=== PATIENT | male | born 1955 | race Caucasian/White ===

== ENCOUNTER 2022-07-16 09:05 | Outpatient (REF) | payer MEDICARE, MEDICAID, SELFPAY ==
--- NOTE | 2022-07-16 09:26 | CA_ITS ---
Transthoracic Echocardiogram Patient (Last, First, Middle): Jesse Pacheco, Gender: Male Date of : 1955 Age: 67 Procedure Date: 07/16/2022 Procedure Type: Transthoracic Echocardiogram Location: OP Height: 167.64 cm Weight: 92.99 kg BSA: 2.02 m2 Heart Rate: 69 bpm BP: 140 / 80 mmHg Subgrade Tester: JW Referring MD: Clemente Bustamante MD Weight Calculator: Viet Jimenes MD Symptoms: R01.1 CA MURMUR Study Quality: Fair ECG Rhythm: Sinus Conclusions: - 1. Normal LV systolic function with LVEF of 55-60% with mild LVH with impaired relaxation filling pattern 2. Normal cardiac valvular Doppler 3. Mildly dilated ascending aorta at 3.8 cm 4. No pericardial effusion Findings Left Ventricle The left ventricle was not well visualized. There is mildly increased left ventricular wall thickness. The visually estimated ejection fraction is between 55-60%. Spectral Doppler is indicative of an impaired relaxation filling pattern. E/E prime ratio is between 8 and 15 consistent with indeterminate filling pressures. Right Ventricle Normal right ventricular cavity size and systolic function. Atria The left atrium is likely dilated. There is no evidence of interatrial shunt. The right atrium is normal in size. Aortic Valve There is mild calcification of the aortic valve. There is no aortic valve stenosis. There is no aortic valve regurgitation. Mitral Valve There is mild anterior and posterior mitral leaflet thickening. There is trace mitral valve regurgitation. There is no mitral valve stenosis. Pulmonic Valve The pulmonic valve was not well visualized. Tricuspid Valve Likely normal tricuspid valve structure and function. Tricuspid regurgitation envelope is inadequate for calculation of right ventricular systolic pressure. Normal right atrial pressure. Great Vessels The pulmonary artery was not well visualized. There is mild dilatation of the ascending aorta measuring 3.80 cm. Venous The inferior vena cava is normal in size and collapses greater than 50% with inspiration. Pericardium/Pleural There is no evidence of pericardial effusion. Prior Study Comparison No prior study available for comparison. Measurements 2D Linear Measurements IVSd: 1.38 0.6-0.9/0.6-1.0 cm LVIDd: 4.01 3.9-5.3/4.2-5.9 cm LVIDd Index: 1.99 2.4-3.2/2.2-3.1 cm/m2 LVIDs: 2.57 2.0-3.6 cm LVPWd: 1.34 0.7-1.1 cm LA Diam: 4.10 2.7-3.8/3.0-4.0 cm LAIDs Index: 2.03 1.5-2.3 cm/m2 LV Mass: 249.95 67-162/88-224 g LV Mass Index: 123.74 43-95/49-115 g/m2 LVOT Diam: 1.90 3.0+(-)1.3 cm 2D Systolic Function EF 4C: 51.90 >55% EF 2C: 64.30 >55% EF BiP: 58.40 >55% Mitral Valve MV Pk E: 0.83 MV PK A: 1.03 MV Decel Time: 221.00 E/A: 0.80 E'Lateral: 7.94 E'Medial: 6.09 E/E' Med: 13.50 E/E' Lat: 10.40 PHT: 65.00 MVA PHT: 3.38 Decel Mcduffie: 3.74 Aortic Valve AoV Pk Harrison: 1.80 AoV Mn Harrison: 1.18 AoV VTI: 0.35 AoV Pk Grad: 13.00 Aov Mn Grad: 6.00 SHANDA Cont.VTI: 2.82 LVOT LVOT Pk Harrison: 1.83 LVOT Mn Harrison: 1.21 LVOT VTI: 0.35 LVOT Pk Grad: 13.00 LVOT Mn Grad: 7.00 LVOT Diam: 1.90 LVOT Area: 2.84 Diastolic Function MV Pk E: 0.83 MV Pk A: 1.03 E/A: 0.80 E'Medial: 6.09 E/E' Med: 13.50 E' Laterial: 7.94 E/E' Lat: 10.40 Right Ventricle TAPSE (mm): 21.70 TVS' Harrison: 12.30 Tricuspid Valve RA Press: 3.00 Great Vessels Aorta Sinus of Valsalva: 3.70 2.0-3.5 cm Ao Asc: 3.80 2.1-3.4 cm Pulmonary Valve PV Pk Harrison: 1.11 Peak PV Grad: 5.00 Updated in Other Vendor System with Status of Final Viet Jimenes MD electronically signed on 07/16/2022 4:44:53 PM with status of Final
== END 2022-07-16 09:06 | disposition home or self-care (01) ==
LOC: HO.LAB 09:05
PROVIDERS: Visit Provider Internal Medicine Geriatric Medicine
DX: R01.1 Cardiac murmur, unspecified (principal)
CPT/HCPCS: 93306

== ENCOUNTER 2023-03-30 10:24 | Outpatient (REF) | payer MEDICARE, MEDICAID, SELFPAY ==
[2023-03-30 13:01] LABS: Anion Gap 19 (12-20); Blood Urea Nitrogen 31 mg/dL (9-16); Calcium 9.3 mg/dL (8.4-10.2); Carbon Dioxide 21 mmol/L (22-29); Chloride 100 mmol/L (96-108); Estimated Glomerular Filt Rate 39; Glucose Random 126 mg/dL (60-115); Potassium 4.4 mmol/L (3.3-5.1); Sodium 136 mmol/L (135-145)
== END 2023-03-30 10:25 | disposition home or self-care (01) ==
LOC: HO.HHCL 10:24
PROVIDERS: Visit Provider Nurse Practitioner Family
DX: N23 Unspecified renal colic (principal)
CPT/HCPCS: 36415; 80048; 87086; 87088; 87186

== ENCOUNTER 2023-04-21 15:33 | Outpatient (REF) | payer MEDICARE, MEDICAID, SELFPAY ==
--- NOTE | ~2023-04-21 | CT_ITS ---
EXAMINATION: CT ABDOMEN AND PELVIS WITHOUT CONTRAST CLINICAL INFORMATION: Kidney stones. COMPARISON: None available. TECHNIQUE: Multidetector volumetric imaging was performed from the superior aspect of the liver through the pubic symphysis. Sagittal and coronal reformatted images were obtained on the technologist's workstation. This CT examination was performed using dose optimization techniques as appropriate, variously including the following: *Automated exposure control *Adjustment of mA and/or kV according to patient size (this includes techniques or standardized protocols for targeted exams where dose is matched to indication/reason for exam; i.e. extremities or head) *Use of iterative reconstruction technique DLP: 720 mGy-cm FINDINGS: LUNG BASES: The visualized lung bases are unremarkable. LIVER, GALLBLADDER, AND BILIARY TREE: Calcified granuloma in the right hepatic lobe. Subtle micronodular contour may represent cirrhosis. Clinical correlation necessary. Cholelithiasis without evidence of acute cholecystitis. No biliary ductal dilatation. PANCREAS: No discrete pancreatic mass. No ductal dilatation. SPLEEN: Calcified granulomas in normal size spleen. ADRENAL GLANDS: Unremarkable. KIDNEYS AND URETERS: Right renomegaly and perinephric stranding. Severe right hydronephrosis due to a 1.3 x 1.2 x 1.7 cm 1400 HU calculus in the mid ureter. No other renal or ureteral calculi are seen. BLADDER: No bladder calculus or discrete bladder mass. GASTROINTESTINAL TRACT: Small bowel is normal in caliber. The appendix is normal. The large bowel is normal in caliber. No acute inflammatory changes. ABDOMINAL WALL: No significant hernia is appreciated. LYMPH NODES: No adenopathy. VASCULAR: No aortic aneurysm. PELVIC VISCERA: Coarse calcifications in the prostate. OSSEOUS STRUCTURES: Degenerative changes in the spine. CT/CT abdomen pelvis wo IV con IMPRESSION: Obstructing 1.3 x 1.2 x 1.7 cm calculus mid right ureter causing severe upstream hydroureteronephrosis. Subtle micronodular contour of the liver suggesting cirrhosis. Fleischner guidelines were followed.
== END 2023-04-21 15:34 | disposition home or self-care (01) ==
LOC: HO.CT 15:33
PROVIDERS: PCP Internal Medicine Geriatric Medicine; Visit Provider Nurse Practitioner Family
DX: N23 Unspecified renal colic (principal)
CPT/HCPCS: 74176

== ENCOUNTER → 2023-09-28 08:42 | Outpatient (REF) | payer MEDICARE, MEDICAID, SELFPAY ==
--- NOTE | 2023-09-28 08:47 | CA_ITS ---
Transthoracic Echocardiogram Patient (Last, First, Middle): Jesse Pacheco, Gender: Male Date of : 1955 Age: 68 Procedure Date: 09/28/2023 Procedure Type: Transthoracic Echocardiogram Location: OP Height: 167.64 cm Weight: 85.73 kg BSA: 1.95 m2 Heart Rate: bpm BP: 110 / 72 mmHg Bore Miner Operator: TO Referring MD: Clemente Bustamante MD Symptoms: R01.1 CA MURMUR Study Quality: Adequate ECG Rhythm: Sinus Conclusions: - The left ventricular systolic function is normal. The calculated ejection fraction is 65% by biplane method. - Evidence suggests grade II (moderate) diastolic dysfunction. - The left atrium is moderately dilated. - No obvious valvular pathology seen on this study. - There is mild dilatation of the ascending aorta measuring 4.10 cm. Findings Left Ventricle Normal left ventricular cavity size. There is mildly increased left ventricular wall thickness. The left ventricular systolic function is normal. The calculated ejection fraction is 65% by biplane method. There is no evidence of regional wall motion abnormalities. Evidence suggests grade II (moderate) diastolic dysfunction. LV peak GLS -19.9%. Right Ventricle Normal right ventricular cavity size and systolic function. Atria The left atrium is moderately dilated. The right atrium is normal in size. Aortic Valve There is a normal trileaflet aortic valve. There is no aortic valve stenosis. There is no aortic valve regurgitation. Mitral Valve There is mild mitral annular calcification. There is trace mitral valve regurgitation. There is no mitral valve stenosis. Pulmonic Valve The pulmonic valve is likely normal. Tricuspid Valve There is no tricuspid valve regurgitation. Tricuspid regurgitation envelope is inadequate for calculation of right ventricular systolic pressure. Great Vessels There is mild dilatation of the ascending aorta measuring 4.10 cm. Venous The inferior vena cava is mildly dilated and collapses greater than 50% with inspiration. Pericardium/Pleural There is no evidence of pericardial effusion. Prior Study Comparison Changes noted compared to prior study dated: 07/16/2022. slight increase in ascending aortic size. Recommendations, Care & Conclusions No obvious valvular pathology seen on this study. Measurements 2D Linear Measurements IVSd: 1.47 0.6-0.9/0.6-1.0 cm LVIDd: 4.51 3.9-5.3/4.2-5.9 cm LVIDd Index: 2.31 2.4-3.2/2.2-3.1 cm/m2 LVIDs: 2.85 2.0-3.6 cm LVPWd: 1.25 0.7-1.1 cm LA Diam: 4.10 2.7-3.8/3.0-4.0 cm LAIDs Index: 2.10 1.5-2.3 cm/m2 LV Mass: 297.65 67-162/88-224 g LV Mass Index: 152.64 43-95/49-115 g/m2 LVOT Diam: 2.40 3.0+(-)1.3 cm 2D Systolic Function EF 4C: 65.80 >55% EF 2C: 64.20 >55% EF BiP: 65.00 >55% Mitral Valve MV VTI: 0.43 MV Pk Harrison: 1.03 MV Mn Harrison: 0.64 MV Pk Grad: 4.00 MV Mn Grad: 2.00 MV Pk E: 0.88 MV PK A: 0.78 MV Decel Time: 278.00 E/A: 1.10 E'Lateral: 6.20 E'Medial: 4.79 E/E' Med: 18.40 E/E' Lat: 14.20 PHT: 82.00 MVA PHT: 2.68 MVA Continuity: 3.65 Decel [place]: 3.17 Aortic Valve AoV Pk Harrison: 1.66 AoV Mn Harrison: 1.13 AoV VTI: 0.37 AoV Pk Grad: 11.00 Aov Mn Grad: 6.00 SHANDA Cont.VTI: 4.18 LVOT LVOT Pk Harrison: 1.63 LVOT Mn Harrison: 0.98 LVOT VTI: 0.35 LVOT Pk Grad: 11.00 LVOT Mn Grad: 4.00 LVOT Diam: 2.40 LVOT Area: 4.52 Diastolic Function MV Pk E: 0.88 MV Pk A: 0.78 E/A: 1.10 E'Medial: 4.79 E/E' Med: 18.40 E' Laterial: 6.20 E/E' Lat: 14.20 Right Ventricle TAPSE (mm): 24.40 TVS' Harrison: 12.50 Tricuspid Valve RA Press: 8.00 Great Vessels Aorta Sinus of Valsalva: 3.77 2.0-3.[address] [place]: 3.26 1.7-3.4 cm Ao Asc: 4.10 2.1-3.4 cm Ao Arch: 3.70 Updated in Other Vendor System with Status of Final Aj Thornton MD electronically signed on 09/28/2023 12:34:45 PM with status of Final
== END ==
LOC: HO.CARD 08:42
PROVIDERS: PCP Internal Medicine Geriatric Medicine; Visit Provider Internal Medicine Geriatric Medicine
DX: I77.810 Thoracic aortic ectasia (principal)
CPT/HCPCS: 93306; 93356

== ENCOUNTER → 2023-09-28 08:47 | Outpatient (BNV) | payer MEDICARE, MEDICAID, SELFPAY | PROVIDERS: PCP Internal Medicine Geriatric Medicine; Visit Provider Internal Medicine | DX: R01.1 Cardiac murmur, unspecified (principal); I71.21 Aneurysm of the ascending aorta, without rupture | CPT/HCPCS: 93306; 93356 ==

== ENCOUNTER 2023-12-20 09:27 | Outpatient (REF) | payer MEDICARE, MEDICAID, SELFPAY ==
[2023-12-20 11:20] LABS: MANUAL DIFF FLAG NO
[2023-12-20 11:31] LABS: Basophils Percent Auto 0.5 % (0-2); Eosinophils Absolute Auto 0.2 X10*3/uL (0.0-0.4); Eosinophils Percent Auto 2.2 % (0-4); Hematocrit 40.5 % (42.0-52.0); Imm Gran Abs Auto 0.02 X10*3/uL (0.00-0.03); Imm Gran Pct Auto 0.2 % (0.0-0.4); Lymphocytes Absolute Auto 2.3 X10*3/uL (1.2-4.9); Lymphocytes Percent Auto 27.5 % (20-40); Mean Corpuscular HGB Conc 32.1 g/dl (31.0-36.0); Mean Corpuscular Hemoglobin 29.7 pg (27.0-33.0); Mean Corpuscular Volume 92.5 fL (80.0-98.0); Mean Platelet Volume 10.2 fL (9.4-12.4); Monocytes Absolute Auto 0.8 X10*3/uL (0.1-1.2); Monocytes Percent Auto 9.4 % (2-11); Neutrophils Percent Auto 60.2 % (45-73); Platelet Count 227 X10*3/uL (160-400); Red Blood Count 4.38 X10*6/uL (4.60-5.80); Red Cell Distribution Width 14.2 % (11.0-16.0); White Blood Count 8.4 X10*3/uL (4.8-10.8)
[2023-12-20 11:44] LABS: Alanine Aminotransferase 27 U/L (0-40); Albumin Level 4.1 g/dL (3.5-5.0); Alkaline Phosphatase 158 U/L (39-117); Anion Gap 13 (12-20); Aspartate Amino Transferase 30 U/L (5-37); Bilirubin Total 0.6 mg/dL (0.0-1.0); Blood Urea Nitrogen 21 mg/dL (9-16); Calcium 9.8 mg/dL (8.4-10.2); Carbon Dioxide 29 mmol/L (22-29); Chloride 103 mmol/L (96-108); Cholesterol 147 mg/dL (<200); Estimated Glomerular Filt Rate > 60; Glucose Random 110 mg/dL (60-115); HDL Cholesterol 55 mg/dL (>40); LDL Cholesterol Calculated 76 mg/dL (<100); Sodium 140 mmol/L (135-145); Triglycerides 83 mg/dL (<150)
[2023-12-20 12:13] LABS: Creatinine Urine 94.39 mg/dL; Microalbum/Creatinine Ratio Ur 11.6 ug/mg cr (<30)
[2023-12-20 12:18] LABS: Estimated Average Glucose 108 mg/dL; Hemoglobin A1c % 5.4 % (<6.0)
[2023-12-21 04:00] LABS: ~Hepatitis C Antibody Nonreactive (Nonreactive)
== END 2023-12-20 09:28 | disposition home or self-care (01) ==
LOC: HO.HHCL 09:27
PROVIDERS: Visit Provider Internal Medicine Geriatric Medicine
DX: E11.69 Type 2 diabetes mellitus with other specified complication (principal); Z11.59 Encounter for screening for other viral diseases
CPT/HCPCS: 36415; 80053; 80061; 82043; 82570; 83036; 85025; 86803